=== PATIENT | male | born 1995 | race Caucasian/White ===

== ENCOUNTER 2019-09-28 10:50 | Outpatient (CLI) | payer OTHER, SELFPAY ==
[2019-09-28 11:18] VITALS: BMI 22.9
--- NOTE | 2019-09-28 11:19 | ECG_ITS ---
NAME OF STUDY: TREADMILL STRESS ECHOCARDIOGRAM INDICATION: Chest Pain PROCEDURE: At the baseline, the patient's blood pressure was 120/71 with a heart rate of 74. The baseline electrocardiogram showed normal sinus rhythm with normal ST-Ts.. The patient exercised for 8 minutes and 30 seconds on a standard Trung protocol. Patient attained a maximum heart rate of 166 beats per minute(85 % of the maximum predicted heart rate) with a blood pressure at the peak exercise of 175/39 mm Hg. The EKG at the peak exercise revealed no significant changes. Patient did not have any chest pain or any significant EKG changes with the exercise During the recovery phase, there were no new changes. Blood pressure at the end of the recovery phase was 110/62 mm Hg with a heart rate of 81 per minute. Echocardiographic pictures were taken at the baseline, immediately following the peak exercise and during the recovery phase. CONCLUSION: 1. Normal EKG response to treadmill exercise 2. No exercise-induced chest pain or cardiac arrhythmia 3. Fair exercise tolerance, attained a maximum of 10.2 METs 4. Please see separate report for the echocardiographic response to exercise. Electronically Signed On 10-11-2019 13:00:20 CDT by El Martin M.D. [id number]
[2019-09-28 11:42] VITALS: BP 166/41; PULSE 83
--- NOTE | 2019-09-28 12:15 | USCV_ITS ---
Dante Ramos Age: 24 Gender: M : 1995 Exam Date: 09/28/2019 11:17 Ordering Phys: El Martin MD ([email or web address]) Technologist: Jackie Arce Exam Location: [facility] – [place] Indication: Rhythm: Atrial fibrillation Patient History: Panic Attacks, Family Hx CAD, Smoking Cardiac Medications: None Medications in past 24 hours: none Contrast: Stress Results Protocol: Trung Total dose(mL): Exercise Duration (min:sec): 8:30 METS: 10.2 Resting HR: 63 Resting BP: 120 / 71 Peak HR: 175 Peak BP: 184 / 71 Max Predicted HR: 194 90 % Max Predicted HR Target HR: 165 Double Product: 87546 Stress Summary: The patient's target heart rate was achieved The hemodynamic response to exercise was normal BP Response: Normal Reason for Termination: Test terminated after reaching target heart rate (85% max predicted) Cardiac Symptoms: None ECG Analysis Resting ECG: Please see separate report Stress ECG: Please see separate report Arrhythmia: Please see separate report MEASUREMENTS (Male/Female) Normal Values FINDINGS The baseline echocardiogram revealed normal LV size and ejection fraction. There is relative diffuse hypokinesia of the anteroseptal segment. With exercise, there was good augmentation of all the segments with no exercise-induced wall motion normalities. During the recovery phase, there was returned to the baseline state CONCLUSIONS Normal echocardiographic response to treadmill exercise. No significant coronary ischemia, based on the above findings For the EKG portion of the stress, please refer to the separate report Dr El Martin MD [facility] (Electronically Signed) Final Date: 29 September 2019 13:18 S
== END 2019-09-28 10:51 | disposition home or self-care (01) ==
PROVIDERS: PCP Internal Medicine; Visit Provider Internal Medicine Cardiovascular Disease
DX: I48.91 Unspecified atrial fibrillation (principal); R07.9 Chest pain, unspecified; R94.31 Abnormal electrocardiogram [ECG] [EKG]
CPT/HCPCS: 93017; 93350

== ENCOUNTER 2019-10-10 08:51 | Emergency (ER) | payer OTHER, SELFPAY ==
[2019-10-10 09:00] VITALS: BP 141/71; PULSE 86; RESP 20; TEMP 36.5; O2SAT 99; BMI 25.8
--- NOTE | 2019-10-10 09:10 | ECG_ITS ---
Measurements Intervals [place] Rate: 83 P: 56 VA: 154 QRS: 52 QRSD: 95 T: 57 QT: 339 QTc: 399 SINUS RHYTHM Compared to ECG 01/30/2019 15:41:10 ST (T wave) deviation no longer present Early repolarization no longer present Electronically Signed On 10-10-2019 15:37:28 CDT by Donta Charles M.D. [id number]
--- NOTE | 2019-10-10 09:10 | XR_ITS ---
WS: [id number] CHEST XRAY TECHNIQUE: Portable chest. CLINICAL INFORMATION: cough/congestion COMPARISON: January 30, 2019 FINDINGS: Heart: Normal cardiac silhouette. Lungs: Lungs are clear. No consolidation or pleural effusion. Bones: Normal visualized bony structures. XR/XR chest 1V portable [id number] IMPRESSION: Normal chest
--- NOTE | 2019-10-10 09:11 | W.ED.ARRPALP ---
HPI - Arrhythmia/Palpitations General: Chief Complaint: Arrhythmia/Palpitations Stated Complaint: Heart racing Time Seen by Provider: 10/10/19 08:58 Source: patient Mode of arrival: ambulatory Limitations: no limitations History of Present Illness: HPI narrative: Patient is a 24-year-old male who presents to ED today with complaints of chest pressure and a feeling of a racing heart rate that started today when he was on his way to work. Also states he was hyperventilating. Patient states he has had similar symptoms previously. He was seen here in January and stated that his test came back normal. He had also had some issues with shortness of breath. He recently has seen Dr. Martin with cardiology and had a stress echocardiogram which was normal. Dr. Martin's office called him and stated they would follow-up with him in November but did not recommend any management at this time. Patient states he has been under a great deal of stress at home. There has been some concerns that maybe his symptoms are anxiety/panic attack induced. MD complaint: rapid heart beat and heart racing Onset (ago): hour(s) Context: occurred during rest Associated symptoms: Reports no associated symptoms; Deny nausea, pre-syncope, syncope or vomiting Review of Systems General: Reports: 10 or more systems reviewed and unremarkable except in HPI and below Const: Denies: fever, chills or body aches Eyes: Denies: change in vision, blurry vision or photophobia ENMT: Denies: throat pain, enlarged tonsils or painful swallowing Card: Reports: chest pain ( pressure ) and palpitations (reports racing heart rate feeling); Denies: edema, swelling of feet/ankles, lightheadedness, syncope, pre-syncope, shortness of breath on exertion, shortness of breath when lying down, leg pain with exertion or bluish discoloration of hands/feet Resp: Denies: shortness of breath, productive cough, non-productive cough, pain on inspiration, coughing up blood or chest congestion GI: Denies: abdominal pain, nausea, vomiting or diarrhea Musc: Denies: neck pain or back pain Skin/Breast: Denies: rash Neuro: Denies: headache, numbness in extremities, weakness in extremities or changes in sensation PFS ED PFSH: Social History Smoking and tobacco status: current every day smoker cigarettes Packs smoked per day: 0.5 Years cigarettes smoked: 8 Alcohol intake: former Year of sobriety/quit date alcohol: 6 MO Physical Exam Const: COMMON NORMALS: average body habitus, oriented x3, no limitations, healthy appearing, alert and well nourished GENERAL APPEARANCE: anxious (shaking) ORIENTATION/CONSCIOUSNESS: Yes oriented to person, Yes oriented to place and Yes oriented to time HENMT: COMMON NORMALS: normocephalic and head/scalp atraumatic HEAD & SCALP: normocephalic and atraumatic Chest: COMMONS NORMALS: inspection of chest normal and palpation of chest normal Resp: COMMON NORMALS: normal respiratory effort and clear to auscultation bilaterally AUSCULTATION: clear to auscultation bilaterally Cardio: COMMON NORMALS: regular rate and regular rhythm RATE: regular rate RHYTHM: regular rhythm Extremity: COMMON NORMALS: normal capillary refill, no clubbing, cyanosis or edema, no calf tenderness and no pedal edema Neuro: STU COMA SCALE: document GCS findings [place] coma scale eye opening: Spontaneous Stu coma scale verbal response: Orientated Stu coma scale motor response: Obey commands [place] coma scale total score: 15 COMMON NORMALS: oriented x3, CN's II-XII intact bilaterally, moves all extremities, no focal motor deficits and no sensory deficits noted SENSORIUM/ORIENTATION: Yes alert, Yes oriented to person, Yes oriented to place and Yes oriented to time Skin: COMMON NORMALS: no rashes or lesions noted GENERAL SKIN EXAM: no rashes or lesions noted Course Vital Signs: Vital signs: Vital Signs Temperature 97.7 F 10/10/19 09:00 Pulse Rate 72 10/10/19 10:32 Respiratory Rate 18 10/10/19 10:32 Blood Pressure 130/66 10/10/19 10:32 Pulse Oximetry 97 10/10/19 10:32 MDM - Arrhythmia/Palpitations MDM Narrative: Medical decision making narrative: Patient feels better after IM Ativan here. Patient's work-up including CBC, CMP, troponin, CXR, EKG are all normal here. Patient recently had a normal stress echocardiogram. He has follow-up with his colon therapist next month. Most likely patient symptoms are anxiety related. I do not feel there is any cardiac component to his discomfort. Return to ED precautions given. We will give patient as needed medication he may take for severe panic attacks like he experienced today. Lab Data: Labs: Lab Results 10/10/19 10/10/19 10/10/19 Range/Units 09:23 09:23 09:23 WBC 4.9 (4.0-10.0) 10^3/ uL RBC 5.02 (4.1-5.3) 10^6/u L Hgb 15.6 (11.7-16.6) g/dL Hct 45.8 (42.0-52.0) % MCV 91.2 (80-94) fL MCH 31.1 (28.0-34.0) pg MCHC 34.1 (30.0-36.0) g/dL RDW 12.1 (12.1-15.1) % Plt Count 218 (130-400) 10^3/c mm MPV 9.2 (7.4-10.4) fL Neut % (Auto) 40.9 % Lymph % (Auto) 39.8 % [place] % (Auto) 10.1 % Eos % (Auto) 7.8 % Baso % (Auto) 1.2 % Neut # (Auto) 2.0 (1.8-7.7) 10^3/u L Lymph # (Auto) 1.9 (0.8-4.8) 10^3/u L [place] # (Auto) 0.5 (0.2-0.9) 10^3/u L Eos # (Auto) 0.4 (0.0-0.8) 10^3/u L Baso # (Auto) 0.1 (0.0-0.1) 10^3/u L Nucleated RBC % (a uto) 0 % Nucleated RBCs # 0.0 /100WBC Sodium 136 (136-145) mmol/L Potassium 3.8 (3.5-5.1) mmol/L Chloride 99 (98-107) mmol/L Carbon Dioxide 23 (22-29) mmol/L Anion Gap 17.8 (5-19) BUN 12 (6-20) mg/dL Creatinine 1.0 (0.7-1.2) mg/dL GFR Calculation 90.3 (90-130) mL/min Glucose 106 (65-115) mg/dL Calculated Osmolal ity 279 L (285-295) mOsm/k g Calcium 9.8 (8.5-10.5) mg/dL Total Bilirubin 0.6 (0.15-1.2) mg/dL AST 27 (0-40) U/L ALT 27 (0-41) U/L Alkaline Phosphata se 58 (40-130) IU/L Troponin T Gen 5 n g/L 6 (0-15) ng/mL Total Protein 7.2 (6.6-8.7) g/dL Albumin 4.6 (3.5-5.2) g/dL Globulin 2.6 (1.3-4.6) g/dL Imaging Data^: RESULTS OF RECENT STRESS ECHO: Radiologist's impression: FINDINGS The baseline echocardiogram revealed normal LV size and ejection fraction. There is relative diffuse hypokinesia of the anteroseptal segment. With exercise, there was good augmentation of all the segments with no exercise-induced wall motion normalities. During the recovery phase, there was returned to the baseline state CONCLUSIONS Normal echocardiographic response to treadmill exercise. No significant coronary ischemia, based on the above findings For the EKG portion of the stress, please refer to the separate report CXR: Radiologist's impression: [address] [address] XRay Report Signed Patient: Dante Ramos Unit #: [id number] : 1995 Age/Sex: 24 / M ADM Date: 10/10/19 Loc: ER Room/Bed: Attending Dr: Ordering Provider/Ordering MD: Meche Ramey Date of Service: 10/10/19 Procedure(s): XR chest 1V portable [id number] Accession Number(s): [id number] Report Number: [id number] WS: [id number] CHEST XRAY TECHNIQUE: Portable chest. CLINICAL INFORMATION: cough/congestion COMPARISON: January 30, 2019 FINDINGS: Heart: Normal cardiac silhouette. Lungs: Lungs are clear. No consolidation or pleural effusion. Bones: Normal visualized bony structures. XR/XR chest 1V portable [id number] IMPRESSION: Normal chest Dictated By: Dioni Nelson MD Signed By: Dioni Nelson MD Signed Date/Time: 10/10/19 0939 DD/ EKG Data^: EKG 1: EKG interpretation date: 10/10/19 EKG interpretation time: 10:02 Interpretation: Sinus rhythm Rate [address] elevation or depression noted No acute changes from previous Other EKG comments: Chest X-Ray 10/10/19 09:10 IMPRESSION: Normal chest Discharge Plan Discharge Patient Disposition: Home, Self-Care Clinical Impression: Panic attack Condition: Stable Prescriptions: New Ativan 1 mg tablet 1 mg PO Q8H PRN (Reason: anxiety) Qty: 10 RF: 0 No Action No Known Home Medications RF: 0 Discharge Orders: Discharge Order (Routine); Ordered 10/10/19 Ordered By: Meche Ramey Referrals: Lalit Harris [Primary Care Provider] - Discharge Diet: Usual diet Discharge Activity: Increase activity as tolerated Patient Instructions: Anxiety (ED), Panic Attack Discharge Date/Time: 10/10/19 10:33 Coding Level of Care Code ED [place] Measurer for Chg Fwd Exam Comprehensive
[2019-10-10] MEDS: LORazepam 2 mg/mL INJ 1 mL 1 MG IM (09:18)
[2019-10-10 09:41] LABS: Basophils # 0.1 10^3/uL (0.0-0.1); Basophils % 1.2 %; Eosinophils # 0.4 10^3/uL (0.0-0.8); Eosinophils % 7.8 %; Hematocrit 45.8 % (42.0-52.0); Hemoglobin 15.6 g/dL (11.7-16.6); Lymphocytes # 1.9 10^3/uL (0.8-4.8); Lymphocytes % 39.8 %; Mean Corpuscular HGB Conc 34.1 g/dL (30.0-36.0); Mean Corpuscular Hemoglobin 31.1 pg (28.0-34.0); Mean Corpuscular Volume 91.2 fL (80-94); Mean Platelet Volume 9.2 fL (7.4-10.4); Monocytes # 0.5 10^3/uL (0.2-0.9); Monocytes % 10.1 %; Neutrophils % 40.9 %; Nucleated Red Blood Cells % 0 %; Platelet Count 218 10^3/cmm (130-400); Red Blood Count 5.02 10^6/uL (4.1-5.3); Red Cell Distribution Width 12.1 % (12.1-15.1); White Blood Count 4.9 10^3/uL (4.0-10.0)
[2019-10-10 10:00] LABS: Alanine Aminotransferase 27 U/L (0-41); Albumin Level 4.6 g/dL (3.5-5.2); Alkaline Phosphatase 58 IU/L (40-130); Anion Gap 17.8 (5-19); Aspartate Amino Transferase 27 U/L (0-40); Blood Urea Nitrogen 12 mg/dL (6-20); Calcium 9.8 mg/dL (8.5-10.5); Carbon Dioxide 23 mmol/L (22-29); Chloride 99 mmol/L (98-107); Globulin 2.6 g/dL (1.3-4.6); Glomerular Filtration Rate 90.3 mL/min (90-130); Glucose 106 mg/dL (65-115); Osmolality Calculated 279 mOsm/kg (285-295); Potassium 3.8 mmol/L (3.5-5.1); Sodium 136 mmol/L (136-145); Total Bilirubin 0.6 mg/dL (0.15-1.2); Total Protein 7.2 g/dL (6.6-8.7)
[2019-10-10 10:03] LABS: Troponin T (5th) Once 6 ng/mL (0-15)
[2019-10-10 10:32] VITALS: BP 130/66; PULSE 72; RESP 18; O2SAT 97
== END 2019-10-10 10:33 | disposition home or self-care (01) ==
PROVIDERS: Emergency Provider Physician Assistant; PCP Internal Medicine
DX: R00.2 Palpitations (principal); F41.0 Panic disorder [episodic paroxysmal anxiety]; F17.210 Nicotine dependence, cigarettes, uncomplicated
CPT/HCPCS: 12345; 36415; 71045; 80053; 84484; 85025; 93005; 96372; 99282; 99283; J2060

== ENCOUNTER 2020-02-10 17:43 | Emergency (ER) | payer OTHER, SELFPAY ==
[2020-02-10 17:49] VITALS: BP 129/79; PULSE 65; RESP 18; TEMP 36.7; O2SAT 99; BMI 26.5
--- NOTE | 2020-02-10 17:57 | CTR_ITS ---
PROCEDURE INFORMATION: Exam: CT Angiography Chest With Contrast Exam date and time: 02/10/2020 6:27 PM Age: 24 years old Clinical indication: Shortness of breath; Patient HX: C/O SOB and weakness; Additional info: Cp TECHNIQUE: Imaging protocol: Computed tomographic angiography of the chest with intravenous contrast. 3D rendering: MIP and/or 3D reconstructed images were created by the technologist. Radiation optimization: All CT scans at this facility use at least one of these dose optimization techniques: automated exposure control; mA and/or kV adjustment per patient size (includes targeted exams where dose is matched to clinical indication); or iterative reconstruction. Contrast material: OMNI 350; Contrast volume: 95 ml; Contrast route: INTRAVENOUS (IV); COMPARISON: CR XR chest 1V portable [id number] 10/10/2019 9:37 AM RADIATION DOSE METRICS: Total DLP (mGy-cm): 683.64 FINDINGS: Pulmonary arteries: No visible evidence for pulmonary embolism/pulmonary arterial thrombus. Aorta: The thoracic aorta is nonaneurysmal. No visible intimal flap or dissection. Lungs: Unremarkable. No consolidation. No masses. Pleural space: Unremarkable. No pneumothorax. No pleural effusion. Heart: Unremarkable. No cardiomegaly. No pericardial effusion. Lymph nodes: Unremarkable. No enlarged lymph nodes. Bones/joints: Pectus excavatum. No visible active or acute osseous abnormality. Soft tissues: Unremarkable. Other findings: A total of 956 images were acquired that required assessment and interpretation. CT/CT angio chest [id number] IMPRESSION: No visible pulmonary embolism/pulmonary arterial thrombus. Radiation Dose CTDIVOL = (mGy): DLP = 683.64 (mGy-cm)
--- NOTE | 2020-02-10 17:58 | ECG_ITS ---
[facility] Test Date: 2020-02-10 Pat Name: Dante Ramos Department: Room: Gender: Male Circuit Designer: : 1995 Requested By: Taurus Ontiveros Order Number: [id number] Priscila MD: Ana Cain M.D. Measurements Intervals [place] Rate: 58 P: 48 SC: 153 QRS: 39 QRSD: 97 T: 49 QT: 374 QTc: 370 Interpretive Statements SINUS BRADYCARDIA Compared to ECG 10/10/2019 09:10:02 Sinus rhythm no longer present Electronically Signed On 02-11-2020 8:37:16 CDT by Ana Cain M.D. [email or web address] ([id number]
--- NOTE | 2020-02-10 18:03 | ED_ITS ---
HPI - Dizziness General: Chief Complaint: Dizziness Stated Complaint: dizzy Time Seen by Provider: 02/10/20 17:56 Source: patient Mode of arrival: ambulatory Limitations: no limitations History of Present Illness: HPI Narrative: 24-year-old male that states started 1 hour ago he had felt like he is going to pass out and his legs and arms were heavy. He states that he felt like he cannot get a deep breath in. He states he is improving currently. He denies any chest pain. He states that he has been having issues like this going on for quite some time especially the difficulty getting deep breaths in. He is scheduled for CT of his chest through the [place]. He denies any vomiting or diarrhea. Associated symptoms: Reports chest pain; Denies chills, headache(s), nausea or vomiting Review of Systems Const: Denies: fever(s), chills, body aches or change in appetite Eyes: Denies: blurry vision or eye discomfort ENMT: Denies: throat pain or dental pain Card: Reports: chest pain and pre-syncope Resp: Denies: dyspnea GI: Denies: abdominal pain, nausea, vomiting or diarrhea : Denies: dysuria Musc: Denies: neck pain or back pain Skin/Breast: Denies: rash Neuro: Denies: headache(s) Psych: Denies: depression [place]/Lymph: Denies: easy bruising All/Imm: Denies: urticaria PFSH ED PFSH: Medical History Abnormal EKG Chest pain Dizziness Dyspnea Heart burn Panic attack Surgical History History of facial surgery Family History Denies family history of Diabetes CAD (coronary artery disease) Cancer Hypertension Social History Smoking and tobacco status: current every day smoker cigarettes Packs smoked per day: 0.5 Years cigarettes smoked: 8 Alcohol intake: former Year of sobriety/quit date alcohol: 6 MO Physical Exam Const: COMMON NORMALS: no acute distress, patient oriented x3 and healthy appearing HENMT: COMMON NORMALS: normocephalic and atraumatic HEAD & SCALP: normocephalic and atraumatic Eye: COMMON NORMALS: Equal, round and reactive pupils present and EOMs intact bilaterally PUPIL: Yes Equal, round and reactive pupils present Neck/C-Spine: COMMON NORMALS: full ROM and supple Chest: COMMONS NORMALS: normal inspection of the chest and normal palpation of entire chest wall Resp: COMMON NORMALS: normal respiratory effort, No retractions, No use of accessory muscles and clear to auscultation bilaterally AUSCULTATION: clear to auscultation bilaterally Cardio: COMMON NORMALS: regular rate, regular rhythm and No murmurs present (Cardio) RATE: regular rate RHYTHM: regular rhythm GI: COMMON NORMALS: Normal to inspection, nondistended, normoactive bowel sounds present, Soft to palpation, non-tender and no masses PALPATION: Yes Soft to palpation Extremity: COMMON NORMALS: normal to inspection and full ROM Neuro: COMMON NORMALS: patient oriented x3, moves all extremities and no focal motor deficits Psych: COMMON NORMALS: mental status grossly normal, Normal thought process present and cooperative THOUGHT PROCESS: Normal thought process present Skin: COMMON NORMALS: no rashes or lesions noted and no wounds GENERAL SKIN EXAM: no rashes or lesions noted Course Vital Signs: Vital signs: Vital Signs Temperature 98.0 F 02/10/20 17:49 Pulse Rate 58 L 02/10/20 19:05 Respiratory Rate 14 02/10/20 19:05 Blood Pressure 125/68 02/10/20 19:05 Pulse Oximetry 98 02/10/20 19:05 MDM - Dizziness MDM Narrative: Medical decision making narrative: Patient presents here with a near syncopal event. His blood work along with EKG and CT chest are all normal. He does not have a pulmonary embolism. Patient is well-appearing here and feels much improved. He is stable for discharge and is to follow-up with his primary care doctor in 3 to 5 days and return if worsening. Lab Data: Labs: Lab Results 02/10/20 02/10/20 Range/Units 18:10 18:10 WBC 4.6 (4.0-10.0) 10^3/ uL RBC 4.73 (4.1-5.3) 10^6/u L Hgb 14.6 (11.7-16.6) g/dL Hct 42.0 (42.0-52.0) % MCV 88.8 (80-94) fL MCH 30.9 (28.0-34.0) pg MCHC 34.8 (30.0-36.0) g/dL RDW 12.1 (12.1-15.1) % Plt Count 239 (130-400) 10^3/c mm MPV 9.8 (7.4-10.4) fL Neut % (Auto) 41.6 % Lymph % (Auto) 41.8 % [place] % (Auto) 9.6 % Eos % (Auto) 6.3 % Baso % (Auto) 0.7 % Neut # (Auto) 1.90 (1.8-7.7) 10^3/u L Lymph # (Auto) 1.9 (0.8-4.8) 10^3/u L [place] # (Auto) 0.4 (0.2-0.9) 10^3/u L Eos # (Auto) 0.3 (0.0-0.8) 10^3/u L Baso # (Auto) 0.0 (0.0-0.1) 10^3/u L Nucleated RBC % (a uto) 0 % Nucleated RBCs # 0.0 /100WBC Sodium 138 (136-145) mmol/L Potassium 3.5 (3.5-5.1) mmol/L Chloride 101 (98-107) mmol/L Carbon Dioxide 26 (22-29) mmol/L Anion Gap 14.5 (5-19) BUN 12 (6-20) mg/dL Creatinine 1.1 (0.7-1.2) mg/dL GFR Calculation 80.9 L (90-130) mL/min Glucose 99 (65-115) mg/dL Calculated Osmolal ity 282 L (285-295) mOsm/k g Calcium 10.1 (8.5-10.5) mg/dL Total Bilirubin 0.9 (0.15-1.2) mg/dL AST 34 (0-40) U/L ALT 26 (0-41) U/L Alkaline Phosphata se 59 (40-130) IU/L Total Protein 7.6 (6.6-8.7) g/dL Albumin 5.1 (3.5-5.2) g/dL Globulin 2.5 (1.3-4.6) g/dL Imaging Data^: CT Chest: Radiologist's impression: [address] [place] [address] CT Scan Report Signed Patient: Dante Ramos Unit #: [id number] : 1995 Age/Sex: 24 / M ADM Date: 02/10/20 Loc: ER Room/Bed: Attending Dr: Ordering Provider/Ordering MD: Taurus Ontiveros MD Date of Service: 02/10/20 Procedure(s): CT angio chest [id number] Accession Number(s): [id number] Report Number: [id number] PROCEDURE INFORMATION: Exam: CT Angiography Chest With Contrast Exam date and time: 02/10/2020 6:27 PM Age: 24 years old Clinical indication: Shortness of breath; Patient HX: C/O SOB and weakness; Additional info: Cp TECHNIQUE: Imaging protocol: Computed tomographic angiography of the chest with intravenous contrast. 3D rendering: MIP and/or 3D reconstructed images were created by the technologist. Radiation optimization: All CT scans at this facility use at least one of these dose optimization techniques: automated exposure control; mA and/or kV adjustment per patient size (includes targeted exams where dose is matched to clinical indication); or iterative reconstruction. Contrast material: OMNI 350; Contrast volume: 95 ml; Contrast route: INTRAVENOUS (IV); COMPARISON: CR XR chest 1V portable [id number] 10/10/2019 9:37 AM RADIATION DOSE METRICS: Total DLP (mGy-cm): 683.64 FINDINGS: Pulmonary arteries: No visible evidence for pulmonary embolism/pulmonary arterial thrombus. Aorta: The thoracic aorta is nonaneurysmal. No visible intimal flap or dissection. Lungs: Unremarkable. No consolidation. No masses. Pleural space: Unremarkable. No pneumothorax. No pleural effusion. Heart: Unremarkable. No cardiomegaly. No pericardial effusion. Lymph nodes: Unremarkable. No enlarged lymph nodes. Bones/joints: Pectus excavatum. No visible active or acute osseous abnormality. Soft tissues: Unremarkable. Other findings: A total of 956 images were acquired that required assessment and interpretation. CT/CT angio chest [id number] IMPRESSION: No visible pulmonary embolism/pulmonary arterial thrombus. EKG Data^: EKG 1: Attestation: I personally reviewed and interpreted this EKG as follows: EKG interpretation date: 02/10/20 EKG interpretation time: 18:24 Interpretation: sinus gurwinder hr [address] or t wave abnormalities qrs 97 qtc 372 Discharge Plan Discharge Patient Disposition: Home Clinical Impression: Near syncope Condition: Stable Prescriptions: No Action lorazepam [Ativan] 1 mg tablet 1 mg PO Q8H PRN (Reason: anxiety) Qty: 10 RF: 0 Discharge Orders: Discharge Order (Routine); Ordered 02/10/20 Ordered By: Taurus Ontiveros Referrals: [facility] [Primary Care Provider] - Discharge Diet: Advance as tolerated Discharge Activity: Resume usual activity Patient Instructions: Near Syncope (ED) Coding Level of Care Code ED Flake Cutter Operator for Chg Fwd Exam Comprehensive
[2020-02-10 18:30] LABS: Basophils % 0.7 %; Eosinophils # 0.3 10^3/uL (0.0-0.8); Eosinophils % 6.3 %; Hemoglobin 14.6 g/dL (11.7-16.6); Lymphocytes # 1.9 10^3/uL (0.8-4.8); Lymphocytes % 41.8 %; Mean Corpuscular HGB Conc 34.8 g/dL (30.0-36.0); Mean Corpuscular Hemoglobin 30.9 pg (28.0-34.0); Mean Corpuscular Volume 88.8 fL (80-94); Mean Platelet Volume 9.8 fL (7.4-10.4); Monocytes # 0.4 10^3/uL (0.2-0.9); Monocytes % 9.6 %; Neutrophils % 41.6 %; Nucleated Red Blood Cells % 0 %; Platelet Count 239 10^3/cmm (130-400); Red Blood Count 4.73 10^6/uL (4.1-5.3); Red Cell Distribution Width 12.1 % (12.1-15.1); White Blood Count 4.6 10^3/uL (4.0-10.0)
--- NOTE | 2020-02-10 18:42 | PC.NURSE ---
Patient to CT on stretcher via electronics technician apprentice at 1849
[2020-02-10] MEDS: iohexol 350 mg/mL 100 mL Btl IV (18:44)
[2020-02-10 18:48] LABS: Alanine Aminotransferase 26 U/L (0-41); Albumin Level 5.1 g/dL (3.5-5.2); Alkaline Phosphatase 59 IU/L (40-130); Anion Gap 14.5 (5-19); Aspartate Amino Transferase 34 U/L (0-40); Blood Urea Nitrogen 12 mg/dL (6-20); Calcium 10.1 mg/dL (8.5-10.5); Carbon Dioxide 26 mmol/L (22-29); Chloride 101 mmol/L (98-107); Creatinine Clr Calc Pharmacy 111.3602; Globulin 2.5 g/dL (1.3-4.6); Glomerular Filtration Rate 80.9 mL/min (90-130); Glucose 99 mg/dL (65-115); Osmolality Calculated 282 mOsm/kg (285-295); Potassium 3.5 mmol/L (3.5-5.1); Sodium 138 mmol/L (136-145); Total Bilirubin 0.9 mg/dL (0.15-1.2); Total Protein 7.6 g/dL (6.6-8.7)
[2020-02-10] MEDS: sodium chloride 0.9% 1,000 ML 999 ML IV (19:04)
[2020-02-10 19:05] VITALS: BP 125/68; PULSE 58; RESP 14; O2SAT 98
== END 2020-02-10 19:39 | disposition home or self-care (01) ==
PROVIDERS: Emergency Provider Emergency Medicine
DX: R55 Syncope and collapse (principal); F17.210 Nicotine dependence, cigarettes, uncomplicated
CPT/HCPCS: 12345; 71275; 80053; 85025; 93005; 96360; 99282; 99283; J7030; Q9967